=== PATIENT | female | born 2005 | race Caucasian/White ===

== ENCOUNTER 2025-02-15 01:13 | Day surgery (SDC) | payer OTHER, SELFPAY ==
[2025-01-31 14:31] VITALS: BMI 31.2
--- OUTSIDE RECORDS SUMMARY | 2025-02-15 01:16 | XMS_ITS | Data Portability ---
Author Organization [facility] Address [address] [place] [address] Assessment Encounter Date Assessment Date Assessment LastModified by Organization Details LastModified Time 11/06/2024 11/06/2024 Annual gynecological exam performed. Patient will come back in a year unless there are new symptoms. [email or web address] Not available 11/06/2024 15:23:06 Plan of Treatment Reminders Order Date Submit Date Provider Last Modified By Organization Details Last Modified Time Details Appointments None recorded. Lab pap, IG + reflex HPV if ASC-U - if hpv positive run subtyping 16, 18/45 2024 025 [facility] (Lab), [address], [place], [address], 10:02:52 Referral None recorded. Procedures None recorded. Surgeries None recorded. Imaging None recorded. Medication Orders Blisovi Fe 04/30 (28) 1 mg-20 mcg (21)/75 mg (7) tablet 2024 025 [id number], [address], [place], [place], [id number], 15:56:01 Patient TargetsNo targets recorded. Patient InstructionsNo instructions recorded. Reason for Referral None Reported. 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 Elect oscar nunes by Rubina Vargas , CT on 025 at 0858 CDT ----- ----- ----- ----- ----- ----- ----- ----- ----- ----- ----- ----- ----- ----- ----- ----- ----- ---- COMME NT: This speci men was revie wed by a Cytot echno logis t and/o r Patho logis t (as indic ated in this repor t) after evalu ation using the Thinp rep Imagi ng Syste m. CLINI DEE DEE INFOR MATIO N: Menst rual Statu s: LMP (if appli cable ): Clini dee dee Histo ry/Pr eviou s Pap: Type of Neopl oliver (if appli cable ): Signi ficlokesh t Clini dee dee Findi ngs: Other Histo ry: Hormo genesis (if appli cable ): PAP EDUCA SABA L NOTE: The Pap Test is a scree nahomi test with an inher ent false negat roverto rate. Liqui d-bas ed sampl ing may decre ase, but will not elimi wesley, false negat roverto resul ts. A negat roverto resul t does not precl ude the prese nce and/o r devel opmen t of disea se, since the prese nce of abnor mal cells in the sampl e depen ds on the locat ion of the lesio n and sampl ing techn ique. Monika nued regul ar scree nahomi is the best metho d of cance r preve ntion . If repor ion cytol ogic findi ng do not corre late with physi dee dee and/o r histo rical findi ngs, furth er inves tigat ion is recom kecia d, as clini kaycee cochran nted. Not Available [facility] (Lab) [address], [place], [address], 11/09/2024 10:02:51 Result Notes None recorded. Medical Equipment None Reported. Allergies No known drug allergies Medications Name Sig Start Date Stop Date Status Note LastModified by Organization Details LastModified Time azithromycin 250 mg tablet TAKE 2 TABLETS BY MOUTH FOR 1 DAY THEN TAKE 1 TABLET BY MOUTH DAILY FOR 4 DAYS 11/06 completed Not Available Not Available Not Available benzonatate 200 mg capsule TAKE 1 CAPSULE BY MOUTH THREE TIMES DAILY FOR 5 DAYS 11/06 completed Not Available Not Available Not Available lorazepam 0.5 mg tablet TAKE 1 TABLET BY MOUTH THREE TIMES DAILY NEEDED FOR ANXIETY active Not Available Not Available No t Available benzonatate 100 mg capsule TAKE 1 CAPSULE BY MOUTH THREE TIMES DAILY FOR 5 DAYS 11/06 completed Not Available Not Available Not Available albuterol sulfate HFA 90 mcg/actuatio n aerosol inhaler INHALE 2 PUFFS BY MOUTH EVERY 4 HOURS FOR 3 DAYS NEEDED FOR COUGH 2024 active Not Available Not Available Not Avai lable amoxicillin 875 mg-potassium clavulanate 125 mg tablet TAKE 1 TABLET BY MOUTH TWICE DAILY FOR 7 DAYS WITH FOOD OR MILK 11/06 completed Not Available Not Available Not Available Blisovi Fe 1/20 (28) 1 mg-20 mcg (21)/75 mg (7) tablet TAKE 1 TABLET BY MOUTH EVERY DAY active Not Available Not Available No t Available Vitals Date Recorded Body height Body mass index (BMI) Body weight Systolic And Diastolic Provider Name and Address Organization Details Last Updated DateTime 11/06/2024 154.94 cm 32.1 kg/m2 08916.98 g 113/84 mm[Hg] Silke Pimentel [facility] 11/06/2024 15:32:25 Social History Question Answer Notes LastModified by Organization Details LastModified Time Tobacco Smoking Status Never Smoker Silke Pimentel [facility] 11/06/2024 15:35:53 Are You Blind Or Do You Have Difficulty Seeing? No Information not available 11/06/2024 What Is Your Level Of Caffeine Consumption? Occasional [email or web address] Information not available 11/06/2024 In The 14 Days Before Symptom Onset, Have You Had Close Contact With A Laboratory-conf irmed COVID-19 While That Case Was Ill? No [email or web address] Information not available 11/06/2024 In The 14 Days Before Symptom Onset, Have You Had Close Contact With A Person Who Is Under Investigation For COVID-19 While That Person Was Ill? No [email or web address] Information not available 11/06/2024 Have You Been To An Area Known To Be High Risk For COVID-19? No [email or web address] Information not available 11/06/2024 Are You Deaf Or Do You Have Serious Difficulty Hearing? No [email or web address] Information not available 11/06/2024 What Type Of Diet Are You Following? REGULAR [email or web address] Information not available 11/06/2024 What Is The Highest Grade Or Level Of School You Have Completed Or The Highest Degree You Have Received? 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 No Information not available 11/06/2024 Do You Use Protection During Sex? No [email or web address] Information not available 11/06/2024 Do You Use Your Seat Belt Or Car Seat Routinely? Yes [email or web address] Information not available 11/06/2024 Are You Sexually Active? Yes [email or web address] Information not available 11/06/2024 Do You Have Smoke And Carbon Monoxide Detectors In Your Home? Yes [email or web address] Information not available 11/06/2024 Do You Use Sunscreen Routinely? Yes [email or web address] Information not available 11/06/2024 Do You Have Difficulty Walking Or Climbing Stairs? No [email or web address] Information not available 11/06/2024 Sex: Unknown Functional Status Question Answer Note LastModified by Organizat ion Details LastModified Time What is your level of alcohol consumption? 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 YESWOREST [email or web address] Information not available 11/06/2024 Are you able to care for yourself independently? Yes [email or web address] Information not available 11/06/2024 Do you have difficulty dressing, bathing, grooming, or toileting? No [email or web address] Information not available 11/06/2024 Mental Status Question Answer Note LastModified by Organization D etails LastModified Time Do you feel stressed (tense, restless, nervous, or anxious, or unable to sleep at night)? [id number] [email or web address] Information not available 11/06/2024 Family History Relationship Description Onset Age of this Age Resolved Age Notes LastModified by Organization Details LastModified Time Paternal Grandmother Malignant neoplasm of breast Not available 2024 15:35:10 Paternal Grandfather Malignant neoplasm of colon [email or web address] Not available 2024 15:35:25 Mother Hypertensive disorder [email or web address] Not available 2024 15:35:35 Medical History Condition Response Allergies (Food, seasonal, environmental ) N Other N Drug/Latex Allergies/Reactions N Blood Transfusion N Breast Cancer N Dermatologic Disorders N Lung Disease N Defects or Inherited Disease N Breast Problem N Gestational Diabetes N Hematologic disorders N Anesthesia Complications N History of STI N Deep Vein Thrombosis N Polycystic ovary syndrome N Anxiety Disorder N Autoimmune disease N Arthritis N Polyps N Infertility N Acid Reflux (GERD) N History of abnormal pap N Cancer N Varicosities N Stroke N Neurologic/Epilepsy N Endometriosis N High Cholesterol N Fibromyalgia N Headaches N Kidney Disease N Heart Problems N Thyroid Problems N Kidney or Bladder Problems N GI Problems N Eating Disorder N Anemia N Art (IVF or FET) N Psychiatric Illness N Ovarian Cancer N Diabetes N Pulmonary (TB, Asthma) N Hepatitis/Liver Disease N No Past Medical History N Eczema N Urinary Tract Infection N Abuse/Domestic Violence N Asthma Y Trauma/Violence N Depression/ depression N Heart Disease N Pre-Eclampsia N Hypertension N Osteoporosis N Thrombophilias N Gynecological History Statement/Question Response Flow Light Date of LMP 09/13/2024 Was last menstrual period normal Y STIs/STDs N Duration of Flow (days) 5 Current Control Method BCPs Are cycles usually normal N Sexually Active? Y Menses Monthly N Age of first menstrual cycle 14 Date of Last Pap Smear Sexual Problems? N LMP Definite Obstetrics History GPAL:G 0 P 0 0 0 0 Past Encounters Encounter ID Performer Location Encounter Start Date Encounter Closed Date Diagnosis/Indication Diagnosis SNOMED-CT Code Diagnosis ICD10 Code Diagnosis IMO Codes Diagnosis Note [id number] Juan R Bo MD [place] [address] [address] 11/06/2024 15:04:02 11/06/2024 16:12:11 Well woman health examination [id number] Z01.419 [id number] Annual gynecologi dee dee exam performed. Patient will come back in a year unless there are new symptoms. Suggest Calcium with Vitamin D if not eating in diet. Patient advised to get annual flu shot. Recommend yearly physicals and perform monthly breast exams. Genetic testing is available for patients with family history of cancer. Engage in safe sexual practices, use condoms. Encouraged to have daily exercise. Avoid tobacco and illicit drugs, moderation of alcohol. If BMI greater than 25 dietary consult advised. If you have any questions please call or email. Pap smear- pap w/ HPV reflex collected STI testing - declined Contracept ion care management [id number] Z30.8 [id number] Happy with current BC pills. Risks/bene fits reviewed.R efills sent x one year. Health Concerns Section Related Observation LastModified by Organization Detai ls LastModified Time None Recorded Concern Status LastModified by Organization Details LastModified Time None Recorded Advance Directives Directive None Recorded Payers Insurance Date Sequence Insurance Name Policy Number Policy Viveros Covered Member ID Viveros Member ID Guarantor Name 11/01/2024 1 [employer] [id number] Montez Turpin [id number] OI Joan Turpin 11/07/2024 1 [facility] Montez Turpin [id number] OI Joan Turpin Notes Date Note Type Note Provider Name and Address Organization Details Recorded Time 5 text/html Annual GYNReported by PatientHistoryFor history, patient reportsno gynecologic complaints.Genitourinary symptomsFor menstrual cycle, patient reportsnormal menses. For urinary symptoms, patient reportsno hematuriaandno incontinence. For vulva, patient reportsno genital lesion. For vagina, patient reportsnormal vaginal discharge.Breast symptomsFor breast, patient reportsno breast pain,no breast lump, andno nipple discharge.ContraceptionFo r current contraception, patient reportssatisfied with current contraceptionandoral contraceptives.Endocrine symptomsFor sexual complaints, patient reportsno sexual complaints,no pain during intercourse, andnormal libido. For menopausal symptoms, patient reportsno menopausal symptomsandnormal vaginal lubrication.Psychological symptomsFor psychological symptoms, patient reportsno depression,no anxiety, andno pmdd.Preventative measuresFor preventive measures, patient reportsencourage self breast examination,encourage regular exercise,encourage no tobacco use, andencourage regular mammograms starting age 40. New patient presents to establish care.Patient requests refills of OCPs that were previously prescribed by provider at her college. Silke caro [facility] 11/06/2024 16:16:58 OBGyn Episode No OBEpisode recorded.
[2025-02-15 10:00] VITALS: BP 140/83; PULSE 105; RESP 16; TEMP 36.9; O2SAT 98; BMI 31.5
[2025-02-15] MEDS: LACTATED RINGERS 1,000 ML 150 ML IV CONT (10:29)
--- NOTE | 2025-02-15 10:29 | P.PNAN_ITS ---
Anes - Initial Pre Proc Eval Procedure: Operation Date: 02/15/25 11:30 Proposed Procedures p Diagnostic Colonoscopy - Santiago Bazzi MD Date/Time: 02/15/25 10:29 Surgeon: Santiago Bazzi MD Pre Op Diagnosis: Irritable bowel syndrome with diarrhea Patient Data Age: 19 Gender: F Height: 1.55 m Weight: 75.7 kg Last Vital Signs Temp 36.9 C 02/15/25 10:00 Pulse 105 H 02/15/25 10:00 Resp 16 02/15/25 10:00 BP 140/83 02/15/25 10:00 Pulse Ox 98 02/15/25 10:00 O2 Del Method Room Air 02/15/25 10:00 Allergies Allergy/AdvReac Type Severity Reaction Status Date / Time No Known Allergies Allergy Verified 02/15/25 10:05 Home Medications ?Medication ?Instructions ?Recorded ?Confirmed ?Type escitalopram oxalate 5 mg tablet 5 mg PO DAILY 5 02/15/25 History (Lexapro) norethindrone 1 mg-ethinyl 1 tablet PO DAILY 12/21/24 02/15/25 History estradiol 20 mcg (24)-iron 75 mg (4) tablet (Blisovi 24 Fe) dicyclomine 20 mg tablet 20 mg PO QID 1 month #120 ta bs 02/05/25 02/15/25 Rx Patient hx anesthesia problems: none Family hx anesthesia problems: none Results Review: All pre-operative results and documents have been reviewed as part of the pre- operative evaluation. [facility] Past Medical History Medical History (Updated 02/14/25 @ 16:05 by Herson Kennedy DO) Asthma Anxiety Surgical History Surgical History Hx of neck surgery Family History Family History Grandparent Carcinoma of colon Grandparent Breast cancer Social History Social History Smoking status: Unknown if ever smoked Alcohol intake: current Drinks per week: 3 Alcohol use details: Social Substance use: current Substance use type: does not use Spiritual care concerns: No Anes - Eval Final PreProcedure Day of Procedure 02/15/25 10:29 Patient weight: obese Heart: regular rate and rhythm Lungs: clear to auscultation Airway: Mallampati scale class II Neurological: alert and oriented Last oral intake: >/= 8 hours ASA classification: II Emergent: no Anesthetic plan: proceed Anesthesia type and monitoring: general GIVS and standard monitoring Results Review: All pre-operative results and documents have been reviewed as part of the pre- operative evaluation. Informed Consent: The patient's anesthetic plan and its attendant risks and benefits were discussed with the patient/family/POA. Questions were solicited and answers p rovided to the satisfaction of the patient/family/POA.
--- NOTE | 2025-02-15 10:51 | PM.HPGS ---
History of Present Illness History of Present Illness Consent: Risks, benefits, and alternatives have been discussed and questions answered. Patient agrees to proceed with procedure. Chief complaint: Irritable bowel syndrome with diarrhea Narrative: Joan Turpin is a 19 year old female here for first colonoscopy because of diarrhea, serology for celiac negative Review of Systems Review of Systems: All systems reviewed & are unremarkable except as noted in HPI and below PMFSH Past Medical History Medical History (Updated 02/14/25 @ 16:05 by Herson Kennedy DO) Asthma Anxiety Surgical History Surgical History Hx of neck surgery Family History Family History Grandparent Carcinoma of colon Grandparent Breast cancer Social History Social History Smoking status: Unknown if ever smoked Alcohol intake: current Drinks per week: 3 Alcohol use details: Social Substance use: current Substance use type: does not use Spiritual care concerns: No Meds Home Medications and Allergies Home Medications ?Medication ?Instructions ?Recorded ?Confirmed ?Type escitalopram oxalate 5 mg tablet 5 mg PO DAILY 12/21/24 02/15/25 History (Lexapro) norethindrone 1 mg-ethinyl 1 tablet PO DAILY 12/21/24 02/15/25 History estradiol 20 mcg (24)-iron 75 mg (4) tablet (Blisovi 24 Fe) dicyclomine 20 mg tablet 20 mg PO QID 1 month #120 tabs 02/05/25 02/15/25 Rx Allergies Allergy/AdvReac Type Severity Reaction Status Date / Time No Known Allergies Allergy Verified 02/15/25 10:05 Vital Signs Vital Signs - 24 hr 02/15/25 10:00 Temperature 98.5 F Pulse Rate 105 H Respiratory Rate 16 Blood Pressure 140/83 Pulse Oximetry 98 Oxygen Delivery Room Air Exam Const: General: comfortable and no acute distress HENMT: Face/Nose/Sinus: Normal nares present Eyes: General: appearance normal, both eyes and all related structures Neck: Neck: no JVD Resp: Auscultation: clear to auscultation bilaterally Cardio: Rate: regular rate Rhythm: regular rhythm GI: Inspection: non-distended GI Palp: Yes Soft to palpation Skin: General skin exam: normal color Extrem: General: normal to inspection Psych: Mental Status: mental status grossly normal Assessment and Plan Assessment and plan (1) Irritable bowel syndrome with diarrhea: Code(s): K58.0 - Irritable bowel syndrome with diarrhea Status: Acute Assessment and Plan: colonoscopy
--- NOTE | 2025-02-15 10:57 | S_PTH ---
PATIENT: Joan Turpin LOC: [facility]#:[id number] AGE/SX: 19/F ROOM: RE02/15/[address]: Santiago Bazzi MD : 2005 BED: DIS: 02/15/2025 SPEC #: [id number] RECD: 02/15/25 11:38 STATUS: AUGUST REHayley #: [id number] DANYELL: 02/15/25 10:[address]: Santiago Bazzi DEPT: [facility] Surgical RECD BY: Julisa Lee ENTERED: 02/15/25 11:38 SP TYPE: Surgical OTHR DR: Eric Castellon, Tissues: A - Colon Biopsy Procedures: Hematoxylin and Eosin Stain Gross and Microscopic Level 4
[2025-02-15 11:00] LABS: BEDSIDEPREGUCG Negative (Negative)
[2025-02-15 11:06] VITALS: BP 108/74; PULSE 102; RESP 20; O2SAT 97
[2025-02-15 11:16] VITALS: BP 102/50; PULSE 95; RESP 20; O2SAT 99
[2025-02-15 11:26] VITALS: BP 97/66; PULSE 82; RESP 20; O2SAT 99
== END 2025-02-15 11:35 | disposition home or self-care (01) ==
PROVIDERS: PCP Internal Medicine; Referring Provider Nurse Practitioner; Visit Provider Internal Medicine Gastroenterology
PROC: 0DJD8ZZ Inspection of Lower Intestinal Tract, Via Natural or Artificial Opening Endoscopic (ICD-10-PCS; CPT 45378; principal; 2025-02-15 11:30)
DX: K58.0 Irritable bowel syndrome with diarrhea (principal); J45.909 Unspecified asthma, uncomplicated; F41.9 Anxiety disorder, unspecified; E66.9 Obesity, unspecified; Z68.31 Body mass index [BMI] 31.0-31.9, adult; Z98.1 Arthrodesis status; Z80.3 Family history of malignant neoplasm of breast; Z80.0 Family history of malignant neoplasm of digestive organs
CPT/HCPCS: 45380; 88305; J2003; J2704; J7120